=== PATIENT | male | born 1965 | race Hispanic/Latino ===

== ENCOUNTER 2017-12-30 11:50 | Inpatient (IN) | payer SELFPAY ==
[2017-12-30] MEDS ORDERED: MORPHINE 4 MG/ML SYR ONE ×2 (14:27→16:26)
[2017-12-30] MEDS ORDERED: ONDANSETRON 4 MG/2 ML VIAL ONE ×2 (14:27→16:26)
[2017-12-30 14:31] LABS: Urine Blood NEGATIVE (NEG); Urine Glucose 2+ (NEG); Urine Protein 3+ (NEG); Urine Specific Gravity >1.030 (1.005-1.030)
[2017-12-30 14:33] LABS: Absolute Lymphocytes (CBC) 0.8 K/uL (0.7-4.9); Absolute Neutrophil 17.9 K/uL (1.8-8.0); Basophils % 0.1 % (0-1.3); Hematocrit 40.3 % (39.6-49.0); Lymphocytes % 3.8 % (15.3-44.8); MCH 30.3 pg (27.0-35.0); MCV 89.4 fL (80-100); MPV 8.8 fL (7.6-11.3); Monocytes % 5.1 % (3.3-12.3); RBC Red Blood Cell Count 4.51 M/uL (4.33-5.43)
[2017-12-30 15:03] LABS: Potassium 3.8 mEq/L (3.6-5.0)
[2017-12-30 15:09] LABS: Albumin 4.6 g/dL (3.2-5.5); Bilirubin Direct 0.2 mg/dL (0-0.2); Bilirubin Total 1.4 mg/dL (0.3-1.2); Protein, Total 8.6 g/dL (6.0-8.3)
[2017-12-30] MEDS ORDERED: PIPER/TAZO/NS 3.375gm 3.375 GM/100 ML BAG ONE (15:21)
[2017-12-30] MEDS ORDERED: FENTANYL CITR 100 MCG/2 ML ONE ×2 (16:50→17:28)
--- NOTE | 2017-12-30 17:00 | RAD REPORT ---
EXAM DESCRIPTION: CTAbdomen Pelvis W Contrast - 12/30/2017 4:42 pm CLINICAL HISTORY: Abdominal pain. COMPARISON: None. TECHNIQUE: Biphasic CT imaging of the abdomen and pelvis was performed with 100 ml non-ionic IV cont rast. All CT scans are performed using dose optimization technique as appropriate and may include automated exposure control or mA/KV adjustment according to patient size. FINDINGS: The lung bases are clear. The liver, spleen, pancreas, adrenal glands and left kidney are within normal limits. Several mildly complicated right renal cystic lesion noted, in the superior pole measuring 3.4 cm, in the inferior p ole measuring 13 mm. The appearance of these cystic lesions warrants followup surveillance imaging. No bowel obstruction, free air, free fluid or abscess. The appendix is significantly dilated measuri ng up to 22 mm with fluid and air present. Small extraluminal air bubbles are present along the infer ior aspect of the appendix. Moderate periappendiceal fat stranding is seen. Findings are most compati ble with perforated appendicitis. Small fat containing umbilical hernia. No evidence of significant l ymphadenopathy. No suspicious bony findings. IMPRESSION: Acute perforated appendicitis suspected. Complex cystic lesions involving the right kidney as detailed. Recommend followup CT or MR imaging of the kidneys with contrast in 6 months.
[2017-12-30] MEDS ORDERED: NA CHLORIDE 0.9% 1,000 ML ONE (17:01)
--- NOTE | 2017-12-30 17:09 | EDPHYS ---
Physician Documentation [facility] Name: Luis Alfredo Fairbanks Age: 52 yrs Sex: Male : 1965 Arrival Date: 12/30/2017 Time: 11:53 Bed 23 Private MD: Aliya Arteaga H ED Physician Lance Arguelles HPI: 12/30 15:20 This 52 yrs old Male presents to ER via Ambulatory with complaints of jr8 Abdominal Pain. 15:20 The patient presents with abdominal pain right lower quadrant. Onset: The jr8 symptoms/episode began/occurred acutely, today. The symptoms do not radiate. Associated signs and symptoms: Pertinent positives: nausea and vomiting. The symptoms are described as sharp. Modifying factors: The symptoms are alleviated by nothing, the symptoms are aggravated by movement. Severity of pain: At its worst the pain was moderate in the emergency department the pain is unchanged. The patient has not experienced similar symptoms in the past. The patient has not recently seen a physician. Historical: - Allergies: 12:01 No Known Allergies; aj - Home Meds: 12:01 None [Active]; aj - PMHx: 12:01 None; aj - PSHx: 12:01 None; aj - Immunization history:: Adult Immunizations up to date. - Social history:: Smoking status: Patient/guardian denies using tobacco. - Ebola Screening: : No symptoms or risks identified at this time. ROS: 15:20 ENT: Negative for injury, pain, and discharge, Neck: Negative for injury, pain, and jr8 swelling, Cardiovascular: Negative for chest pain, palpitations, and edema, Respiratory: Negative for shortness of breath, cough, wheezing, and pleuritic chest pain, Back: Negative for injury and pain, MS/Extremity: Negative for injury and deformity, Skin: Negative for injury, rash, and discoloration, Neuro: Negative for headache, weakness, numbness, tingling, and seizure. 15:20 Abdomen/GI: Positive for abdominal pain, nausea and vomiting, Negative for diarrhea, constipation, abdominal cramps, abdominal distension, anorexia, dysphagia, hematemesis, black/tarry stool, rectal pain, rectal bleeding, bowel incontinence, flatulence. Exam: 15:20 Eyes: Pupils equal round and reactive to light, extra-ocular motions intact. Lids and jr8 lashes normal. Conjunctiva and sclera are non-icteric and not injected. Cornea within normal limits. Periorbital areas with no swelling, redness, or edema. ENT: Nares patent. No nasal discharge, no septal abnormalities noted. Tympanic membranes are normal and external auditory canals are clear. Oropharynx with no redness, swelling, or masses, exudates, or evidence of obstruction, uvula midline. Mucous membranes moist. Neck: Trachea midline, no thyromegaly or masses palpated, and no cervical lymphadenopathy. Supple, full range of motion without nuchal rigidity, or vertebral point tenderness. No Meningismus. Cardiovascular: Regular rate and rhythm with a normal S1 and S2. No gallops, murmurs, or rubs. Normal PMI, no JVD. No pulse deficits. Respiratory: Lungs have equal breath sounds bilaterally, clear to auscultation and percussion. No rales, rhonchi or wheezes noted. No increased work of breathing, no retractions or nasal flaring. Back: No spinal tenderness. No costovertebral tenderness. Full range of motion. Skin: Warm, dry with normal turgor. Normal color with no rashes, no lesions, and no evidence of cellulitis. MS/ Extremity: Pulses equal, no cyanosis. Neurovascular intact. Full, normal range of motion. Neuro: Awake and alert, GCS 15, oriented to person, place, time, and situation. Cranial nerves II-XII grossly intact. Motor strength 5/5 in all extremities. Sensory grossly intact. Cerebellar exam normal. Normal gait. 15:20 Abdomen/GI: Inspection: abdomen appears normal, Bowel sounds: active, all quadrants, Palpation: soft, in all quadrants, moderate abdominal tenderness, in the right lower quadrant, mass, is not appreciated, rebound tenderness, is appreciated in the right lower quadrant, voluntary guarding, is elicited in the right lower quadrant, involuntary guarding, is not appreciated, no appreciated organomegaly, Indicators: McBurney's point is tender, Farrar's sign is negative, Rovsing's sign is negative, Obturator sign is negative, Psoas sign is negative, Liver: no appreciated palpable abnormalities, tenderness, is not appreciated. Vital Signs: 12:01 BP 157 / 129; Pulse 74; Resp 20; Temp 98.8; Pulse Ox 99% on R/A; Weight 81.65 kg; aj Height 5 ft. 6 in. (167.64 cm); 14:00 BP 144 / 79; Pulse 64; Resp 18 S; Pulse Ox 100% on R/A; aa5 15:05 BP 147 / 85; Pulse 58; Resp 18; Pulse Ox 100% on R/A; tl3 17:05 BP 128 / 83; Pulse 80; Resp 20; Pulse Ox 94% on R/A; Pain 6/10; mb3 17:30 BP 135 / 80; Pulse 80; Resp 20; Pulse Ox 99% on R/A; mh5 12:01 Body Mass Index 29.05 (81.65 kg, 167.64 cm) aj MDM: 13:40 Patient medically screened. [facility] 16:58 Data reviewed: vital signs, nurses notes, lab test result(s), EKG, radiologic studies, 8 CT scan, and as a result, I will admit patient. Data interpreted: Pulse oximetry: on room air is 100 %. Interpretation: normal. Counseling: I had a detailed discussion with the patient and/or guardian regarding: the historical points, exam findings, and any diagnostic results supporting the discharge/admit diagnosis, lab results, radiology results, the need for further work-up and treatment in the hospital. ED course: Spoke with Dr. Talamantes. Perforated appendicitis noted on CT. 16:58 ED course: Paged Dr. Marcos 16:57. Awaiting call back . 8 17:03 ED course: Dr. Marcos called back and will see patient immediately in PACU for surgery. [facility] OR team and laborer [employer] house notified . 12/30 13:40 Order name: Basic Metabolic Panel; Complete Time: 15:59 8 12/30 13:40 Order name: CBC with Diff 12/30 13:40 Order name: Creatinine for Radiology; Complete Time: 15:10 [facility] 12/30 13:40 Order name: Hepatic Function; Complete Time: 15:59 8 12/30 13:40 Order name: Lipase; Complete Time: 15:59 [facility] 12/30 14:28 Order name: Urine Dipstick--Ancillary (enter results); Complete Time: 14:36 bd 12/30 14:24 Order name: CT Abd/Pelvis - W/Contrast; Complete Time: 17:03 [facility] 12/30 13:40 Order name: IV Saline Lock; Complete Time: 14:06 8 12/30 13:40 Order name: Labs collected and sent; Complete Time: 14:06 8 12/30 13:40 Order name: Urine Dipstick-Ancillary (obtain specimen); Complete Time: 14:32 Administered Medications: 14:35 Drug: Zofran 4 mg Route: IVP; Infused Over: 3 mins; Site: right antecubital; tl3 15:06 Follow up: Response: No adverse reaction tl3 14:36 Drug: morphine 4 mg Route: IVP; Infused Over: 3 mins; Site: right antecubital; tl3 15:07 Follow up: Response: Pain is decreased tl3 15:30 Drug: Zosyn 3.375 grams Route: IVPB; Infused Over: 60 mins; Site: right antecubital; mb3 18:02 Follow up: Response: No adverse reaction; IV Status: Completed infusion; IV Intake: mb3 100ml 16:25 Drug: morphine 4 mg Route: IVP; Site: left antecubital; mb3 18:03 Follow up: Response: No adverse reaction mb3 16:25 Drug: Zofran 4 mg Route: IVP; Site: left antecubital; mb3 18:04 Follow up: Response: No adverse reaction mb3 16:57 Drug: fentaNYL (PF) 75 mcg Route: IVP; Site: left forearm; mb3 18:03 Follow up: Response: No adverse reaction mb3 17:03 Drug: NS 0.9% 1000 ml Route: IV; Rate: 1000 ml; Site: left antecubital; mb3 18:03 Follow up: Response: No adverse reaction; IV Status: Completed infusion; IV Intake: mb3 1000ml Point of Care Testing: Blood Glucose: 14:30 Blood Glucose: 135 mg/dL; mh5 Ranges: Critical Glucose Levels:Adult <50 mg/dl or >400 mg/dl <40 mg/dl or >180 mg/dl Disposition: 19:19 Co-signature as Attending Physician, Lance Arguelles MD I agree with the assessment and kdr plan of care. Disposition: 12/30/17 17:09 Hospitalization ordered by Gaston Marcos for Inpatient Admission. Preliminary diagnosis is Acute appendicitis with localized peritonitis. - Bed requested for Telemetry/MedSurg (observation). - Status is Inpatient Admission. mb3 - Condition is Fair. - Problem is new. - Symptoms are unchanged. UTI on Admission? No Signatures: Dispatcher [employer] EDMS Sonia Aragon Amanda, RN RN Lance Mendoza MD MD [facility] Maggy Genao RN RN aa5 George Don, PA PA jr8 Rohini Green RN RN tl3 Dennis Cunningham RN RN mb3 Corrections: (The following items were deleted from the chart) 17:50 17:09 Hospitalization Ordered by Gaston Marcos MD for Inpatient Admission. Preliminary bd diagnosis is Acute appendicitis with localized peritonitis. Bed requested for Operating Room. Status is Inpatient Admission. Condition is Fair. Problem is new. Symptoms are unchanged. UTI on Admission? No. jr8 18:05 17:50 12/30/2017 17:09 Hospitalization Ordered by Gaston Marcos MD for Inpatient mb3 Admission. Preliminary diagnosis is Acute appendicitis with localized peritonitis. Bed requested for Telemetry/MedSurg (observation). Status is Inpatient Admission. Condition is Fair. Problem is new. Symptoms are unchanged. UTI on Admission? No. bd
--- NOTE | 2017-12-30 17:09 | ER ---
Nurse's Notes [facility] Name: Luis Alfredo Fairbanks Age: 52 yrs Sex: Male : 1965 Arrival Date: 12/30/2017 Time: 11:53 Bed 23 Private MD: Aliya Arteaga H Diagnosis: Acute appendicitis with localized peritonitis Presentation: 12/30 12:00 Presenting complaint: Patient states: RLQ pain with N/V since last night. Reports aj severe pain. Transition of care: patient was not received from another setting of care. Onset of symptoms was December 29, 2017. Care prior to arrival: None. 12:00 Method Of Arrival: Ambulatory aj 12:00 Acuity: ANGEL 3 aj 13:55 Risk Assessment: Do you want to hurt yourself or someone else? Patient reports no aa5 desire to harm self or others. Initial Sepsis Screen: Does the patient meet any 2 criteria? No. Patient's initial sepsis screen is negative. Does the patient have a suspected source of infection? No. Patient's initial sepsis screen is negative. Triage Assessment: 12:01 General: Appears in no apparent distress. uncomfortable, Behavior is calm, cooperative, aj appropriate for age. Pain: Complains of pain in right lower quadrant. Neuro: Level of Consciousness is awake, alert, obeys commands, Oriented to person, place, time, situation, Appropriate for age. Respiratory: Airway is patent Respiratory effort is even, unlabored, Respiratory pattern is regular, symmetrical. GI: Reports lower abdominal pain, nausea, vomiting. Derm: Skin is intact, is healthy with good turgor, Skin is pink, warm \T\ dry. normal. Historical: - Allergies: 12:01 No Known Allergies; aj - Home Meds: 12:01 None [Active]; aj - PMHx: 12:01 None; aj - PSHx: 12:01 None; aj - Immunization history:: Adult Immunizations up to date. - Social history:: Smoking status: Patient/guardian denies using tobacco. - Ebola Screening: : No symptoms or risks identified at this time. Screenin:55 Abuse screen: Denies threats or abuse. Nutritional screening: No deficits noted. aa5 Tuberculosis screening: No symptoms or risk factors identified. Fall Risk None identified. Assessment: 13:55 General: Appears uncomfortable, Behavior is calm, cooperative. Pain: Complains of pain aa5 in right lower quadrant and left lower quadrant Pain does not radiate. Pain currently is 10 out of 10 on a pain scale. Quality of pain is described as sharp, Pain began 2-3 days ago. Is continuous. Neuro: Level of Consciousness is awake, alert, obeys commands, Oriented to person, place, time, situation. Cardiovascular: Heart tones S1 S2 present Rhythm is regular. Respiratory: Airway is patent Respiratory effort is even, unlabored, Respiratory pattern is regular, symmetrical, Breath sounds are clear bilaterally. Denies shortness of breath. GI: Abdomen is round non-distended, Bowel sounds present X 4 quads. Abd is soft X 4 quads Abdomen is tender to palpation in right lower quadrant Reports nausea, vomiting, Patient currently denies bloody stool, diarrhea. : No signs and/or symptoms were reported regarding the genitourinary system. EENT: No signs and/or symptoms were reported regarding the EENT system. Derm: Skin is pink, warm \T\ dry. Musculoskeletal: Range of motion: intact in all extremities. 14:07 Reassessment: Report given to LOVE Nova. aa5 15:05 General: Appears uncomfortable, well groomed, well developed, well nourished, Behavior tl3 is calm, cooperative, appropriate for age. Pain: Complains of pain in left lower quadrant and abdomen and right lower quadrant. Neuro: Level of Consciousness is awake, alert, obeys commands, Oriented to person, place, time, situation. Cardiovascular: Heart tones S1 S2 present. Respiratory: Airway is patent Respiratory effort is even, unlabored, Respiratory pattern is regular, symmetrical, Breath sounds are clear bilaterally. 15:17 Reassessment: Finished PO contrast. Reassessment: Patient appears in no apparent mb3 distress at this time. Patient and/or family updated on plan of care and expected duration. Pain level reassessed. Patient is alert, oriented x 3, equal unlabored respirations, skin warm/dry/pink. agree with above assessment Patient states feeling better. 17:06 Reassessment: Patient and/or family updated on plan of care and expected duration. Pain mb3 level reassessed. Patient is alert, oriented x 3, equal unlabored respirations, skin warm/dry/pink. 17:13 Reassessment: Patient and/or family updated on plan of care and expected duration. Pain mb3 level reassessed. Patient is alert, oriented x 3, equal unlabored respirations, skin warm/dry/pink. Removed all clothing in preparation of surgery, pt placed glasses inside his shoes with socks. Cloths are in two bags, shoes, socks, and glasses in one, cloths, hat, sunglasses and phone in the other. Patient states symptoms have not improved. Vital Signs: 12:01 BP 157 / 129; Pulse 74; Resp 20; Temp 98.8; Pulse Ox 99% on R/A; Weight 81.65 kg; aj Height 5 ft. 6 in. (167.64 cm); 14:00 BP 144 / 79; Pulse 64; Resp 18 S; Pulse Ox 100% on R/A; aa5 15:05 BP 147 / 85; Pulse 58; Resp 18; Pulse Ox 100% on R/A; tl3 17:05 BP 128 / 83; Pulse 80; Resp 20; Pulse Ox 94% on R/A; Pain 6/10; mb3 17:30 BP 135 / 80; Pulse 80; Resp 20; Pulse Ox 99% on R/A; mh5 12:01 Body Mass Index 29.05 (81.65 kg, 167.64 cm) ED Course: 11:53 Patient arrived in ED. mr 11:53 Aliya Arteaga DO is Private Physician. mr 12:01 Triage completed. aj 12:01 Arm band placed on right wrist. Patient placed in waiting room, Patient notified of wait time. 12:07 Notified Charge Nurse of Need for bed. aj 13:40 George Don PA is PHCP. jr8 13:40 Lance Arguelles MD is Attending Physician. jr8 13:48 Maggy Genao, LOVE is Primary Nurse. aa5 14:05 Patient has correct armband on for positive identification. Placed in gown. Bed in low mh5 position. Call light in reach. Side rails up X 1. Pillow given. Pulse ox on. NIBP on. 14:05 Initial lab(s) drawn, by in, sent to lab. Inserted saline lock: 20 gauge in right mh5 antecubital area, using aseptic technique. Blood collected. 14:06 Basic Metabolic Panel Sent. mh5 14:06 CBC with Diff Sent. 5 14:06 Creatinine for Radiology Sent. 5 14:06 Hepatic Function Sent. 5 14:06 Lipase Sent. [facility] 14:31 Urine Dipstick--Ancillary (enter results) Sent. 5 14:31 Basic Metabolic Panel Sent. 5 14:31 CBC with Diff Sent. 5 14:31 Creatinine for Radiology Sent. 5 14:31 Hepatic Function Sent. [facility] 14:32 Lipase Sent. 5 15:05 No provider procedures requiring assistance completed. tl3 15:15 Report given to LOVE Collins. tl3 15:49 IV discontinued, intact, bleeding controlled, Pressure dressing applied, warm cloth mb3 applied to infitration site. 15:50 Inserted saline lock: 20 gauge in left antecubital area, using aseptic technique. mb3 15:50 Missed attempt(s): 20 gauge Bleeding controlled, band aid applied, catheter tip intact. mb3 16:37 Patient moved to [place] via wheelchair. nj 16:42 CT completed. Patient tolerated procedure well. Patient moved back from MN. nj 16:42 CT Abd/Pelvis - W/Contrast In Process Unspecified. EDMS 16:58 EKG done, by solid waste landfill technician. reviewed by George BLANKENSHIP. 3 17:08 Gaston Marcos MD is Hospitalizing Provider. jr8 Administered Medications: 14:35 Drug: Zofran 4 mg Route: IVP; Infused Over: 3 mins; Site: right antecubital; tl3 15:06 Follow up: Response: No adverse reaction tl3 14:36 Drug: morphine 4 mg Route: IVP; Infused Over: 3 mins; Site: right antecubital; tl3 15:07 Follow up: Response: Pain is decreased tl3 15:30 Drug: Zosyn 3.375 grams Route: IVPB; Infused Over: 60 mins; Site: right antecubital; mb3 18:02 Follow up: Response: No adverse reaction; IV Status: Completed infusion; IV Intake: mb3 100ml 16:25 Drug: morphine 4 mg Route: IVP; Site: left antecubital; mb3 18:03 Follow up: Response: No adverse reaction mb3 16:25 Drug: Zofran 4 mg Route: IVP; Site: left antecubital; mb3 18:04 Follow up: Response: No adverse reaction mb3 16:57 Drug: fentaNYL (PF) 75 mcg Route: IVP; Site: left forearm; mb3 18:03 Follow up: Response: No adverse reaction mb3 17:03 Drug: NS 0.9% 1000 ml Route: IV; Rate: 1000 ml; Site: left antecubital; mb3 18:03 Follow up: Response: No adverse reaction; IV Status: Completed infusion; IV Intake: mb3 1000ml Point of Care Testing: Blood Glucose: 14:30 Blood Glucose: 135 mg/dL; 5 Ranges: Intake: 18:02 IV: 100ml; Total: 100ml. mb3 18:03 IV: 1000ml; Total: 1100ml. 3 Outcome: 17:09 Decision to Hospitalize by Provider. [facility] 18:04 Admitted to OR accompanied by nurse, family with patient, via stretcher, room 205 after mb3 surgery, with chart. 18:04 Condition: stable 18:04 Instructed on the need for admit. 18:05 Patient left the ED. 3 Signatures: Dispatcher [employer] Ear Fermin, RN Katty Lang Audri, RN RN aa5 George Don PA PA [facility] Zackery Mendoza Maria 5 Rohini Green RN RN tl3 Dennis Cunningham RN RN mb3 Maria Elena Hartman 3
[2017-12-30] MEDS ORDERED: PROPOFOL 200 MG/20 ML VIAL IV ONE (17:27)
[2017-12-30] MEDS ORDERED: MIDAZOLAM HCL 2 MG/2 ML INJ ONE (17:28)
[2017-12-30] MEDS ORDERED: GLYCOPYRROLATE 0.2 MG/ML SYR ONE ×2 (17:28)
[2017-12-30] MEDS ORDERED: ROCURONIUM 50 MG/5 ML VIAL IV ONE ×2 (17:29→18:41)
[2017-12-30] MEDS ORDERED: MORPHINE 10 MG/ML VIAL ONE (17:29)
[2017-12-30] MEDS ORDERED: NEOSTIGMINE 1 MG/ML -5 ML SYRINGE ONE (17:29)
[2017-12-30] MEDS ORDERED: KETOROLAC 30 MG/ML INJ ONE (17:29)
[2017-12-30] MEDS ORDERED: ONDANSETRON HCL 40 MG/20 ML VIAL ONE (17:34)
[2017-12-30] MEDS ORDERED: METOCLOPRAMIDE 10 MG/2mL INJ ONE (17:34)
[2017-12-30] MEDS ORDERED: BUPIVACAINE 0.5% Inj,MDV 50 mL VIAL ONE (17:35)
[2017-12-30] MEDS ORDERED: Ringers Lactate 1,000 ML IV ONE ×2 (17:45→19:27)
--- NOTE | 2017-12-30 18:22 | PREOPHP ---
Date of Admission: 12/30/2017 Chief Complaint: Abdominal pain. History Of Present Illness: The patient is a 52-year-old gentleman, comes in with approximately 5-da y history of periumbilical pain, progressively getting worse and localizing to the right lower quadra nt, associated with nausea and vomiting, anorexia. No diarrhea or constipation. No blood in his sto ol. No dysuria or hematuria. No sore throat, runny nose, cough, headaches, or dizziness. No chest pain. Review of Systems: Otherwise unremarkable. No fever or chills. Past Medical History: Negative. Past Surgical History: Left index finger surgery. Allergies: NO ALLERGIES. Social History: He does not smoke. Drinks occasionally. Family History: Significant for abdominal cancer in the sister. Physical Examination: Vital Signs: Stable. He is afebrile. General: He is awake, alert, and oriented x3. Head and Neck: Cranial nerves 2 through 12 are grossly within normal limits. No neck masses. No JV D. Throat clear. Neck is supple. Chest: Clear. Heart: S1, S2. Abdomen: Soft, nondistended. Positive bowel sounds. Positive right lower quadrant tenderness with rebound, rigidity, and guarding. There is a little bit of tenderness on the left side and suprapubic region, but no peritonitis on that side. Extremities: Adequately perfused. Nontender. Neuro: Nonfocal. Laboratory Data: White count is 19.6 with a left shift. Chemistry is significant for glucose of 152 , lipase of 18. CT of the abdomen and pelvis reviewed with the radiologist is consistent with acute perforated appendicitis and also the patient has complex cystic lesions in the right kidney, 1 on the superior pole and inferior pole, somewhat complex in nature, and needs to be followed with a repeat CT or MRI in 6 months. Assessment: A 52-year-old gentleman with acute perforated appendicitis and right kidney mass. Recommendations: We will advise the patient to go see a urologist as an outpatient for further mary p of the cystic mass in the kidney. As far as the acute appendicitis is concerned, the patient needs to go to the operating room for laparoscopic appendectomy, possible open. The patient understands t he risks, benefits, and alternatives and agrees to procedure. ALEJO/MONICA Voice ID: [id number]
[2017-12-30] MEDS ORDERED: LIDOCAINE 2% MPF 2 ML VIAL IV ONE (19:00)
--- NOTE | 2017-12-30 19:16 | P.OP ---
Assistant Manager Of Operations: Manisha JUNG Preoperative diagnosis: Acute Perforated Appendicitis Postoperative diagnosis: Same, Acute Gangrenous Perforated Appendicitis Primary procedure: Diag Lap, Exp Lap , Appendectomy, Repair Umbilical Hernia Anesthesia: General Estimated blood loss: Minimal Specimen: Appy, Hernia Sac Findings: as above Complications: None Drain(s): Urinary catheter, DELILAH drain Transferred to: Recovery Room Condition: Good
[2017-12-30] MEDS ORDERED: MEPERIDINE HCL 50 MG/ML AMP IV PRN (19:20)
[2017-12-30] MEDS: MEPERIDINE HCL 50 MG/ML AMP ONE ×2 (19:31→19:38)
[2017-12-30] MEDS ORDERED: MEPERIDINE HCL 25 MG/0.5 ML ONE (19:53)
[2017-12-30] MEDS: MEPERIDINE HCL 25 MG/0.5 ML IV PRN (21:03)
[2017-12-30] MEDS: NA CHLORIDE 0.9% 1,000 ML IV SCH (21:05)
[2017-12-30 22:00] LABS: Blood Morphology Comment NOT SEEN (NOT SEEN); Platelet Estimate ADEQ; Urine White Blood Cell Casts OK
[2017-12-30] MEDS ORDERED: CEFOXITIN/SWI 1gm 2 GM/20 ML SYR ONE (23:43)
[2017-12-31] MEDS ORDERED: CEFOXITIN SODIUM 1 GM/VIAL IV SCH
[2017-12-31] MEDS ORDERED: CEFOXITIN 1 GM in NA CHLORIDE 0.9% 100 ML IVPB SCH ×2
[2017-12-31] MEDS: METRONIDAZOLE 500mg IVPB 500 MG/100 ML BAG IV SCH ×4 (00:02→18:13)
[2017-12-31] MEDS: MEPERIDINE HCL 25 MG/0.5 ML IV PRN ×8 (00:03→21:13)
[2017-12-31] MEDS: CEFOXITIN 1 GM/10 ML SYR IV SCH ×2 (00:07→05:31)
--- NOTE | 2017-12-31 03:50 | OP ---
Date of Procedure: 12/30/2017 Surgeon: Gaston Marcos MD Supervisor Filling And Packing: FABIANA Cornejo. Preoperative Diagnosis: Acute perforated appendicitis. Postoperative Diagnosis: Acute perforated gangrenous appendicitis with a small umbilical hernia. Procedures Performed: Diagnostic laparoscopy, exploratory laparotomy, appendectomy, and repair of um bilical hernia. Estimated Blood Loss: 50 cc. Specimens: Appendix and hernia sac. Findings: As above. Anesthesia: General. Complications: None. Disposition: The patient tolerated the procedure in stable condition and was taken to the Recovery i n good general condition. Procedure In Detail: The patient was brought to the OR and placed in supine position. General anest hesia was begun. The patient was prepped and draped in usual sterile fashion. A #15 blade was used to make a 2-cm transverse incision of the umbilical hernia that was present. I did make it transvers e to be able to easily repair the hernia defect. Subcutaneous tissue was divided and deepened throug h that hernia sac contents which were preperitoneal fat identified, excised, and sent to Pathology as specimen; and a 1-cm periumbilical hernia defect slightly extended and then 12-mm trocar was placed into the peritoneal cavity under direct vision and then pneumoperitoneum established and two 5-mm tro cars placed under direct vision; one in the suprapubic region and one in the left lower quadrant. La paroscopy revealed an acutely inflamed appendix with gangrenous changes with pus in the right lower q uadrant and pelvis as well as some appendicolith present. I could not clearly identify the base of t he appendix on the cecum as it was retrocecal and medial. This required complete mobilization of the ileocecal region. So, subsequently, we decided to convert this to an open procedure by making a mid line incision just over the umbilicus to the pubis. Subcutaneous tissue was divided. The fascia was identified and divided, and then exploratory laparotomy confirmed the aforementioned findings. With proper mobilization of the cecum, the base of the appendix on the cecum was identified as well as th e mesoappendix, and this was divided with the Endo-VAUGHN stapling device. Appendix was removed and sen t to Pathology as specimen. Right lower quadrant and pelvis were thoroughly irrigated. The effluent was clear. There was no evidence of bowel injury or bleeding noted. Salvador-Archer drain #10 flat, placed through 3-0 nylon, and then midline fascia closed as well as the repair of the hernia with #2 nylon running suture. Then, wounds were irrigated, bleeding controlled with cautery, and then all wo unds were closed with pat. Sterile dressing was applied. The patient was awakened and taken to Recovery in good general condition. ALEJO/MONICA Voice ID: [id number] Report ID: [id number]
[2017-12-31] MEDS: NA CHLORIDE 0.9% 1,000 ML IV SCH ×4 (04:38→20:08)
[2017-12-31 05:19] LABS: Absolute Lymphocytes (CBC) 0.7 K/uL (0.7-4.9); Absolute Monocytes 0.5 K/uL (0.1-1.3); Absolute Neutrophil 7.4 K/uL (1.8-8.0); Basophils % 0.3 % (0-1.3); Hematocrit 36.9 % (39.6-49.0); Lymphocytes % 8.3 % (15.3-44.8); MCH 30.8 pg (27.0-35.0); MPV 8.4 fL (7.6-11.3); Monocytes % 5.8 % (3.3-12.3)
[2017-12-31 05:37] LABS: Phosphorus 3.4 mg/dL (2.5-4.3); Potassium 3.9 mEq/L (3.6-5.0)
[2017-12-31 05:40] LABS: Magnesium 1.4 mg/dL (1.8-2.5)
[2017-12-31] MEDS ORDERED: Magnesium Sulfate 2gm IVPB 2 G/50 ML BAG IV ONE (06:09)
[2017-12-31] MEDS: PANTOPRAZOLE 40 MG INJ IVP SCH (08:47)
[2017-12-31] MEDS: ENOXAPARIN 40 MG/0.4 ML SQ SCH (08:47)
[2017-12-31] MEDS: SODIUM CHLORIDE 0.9% 10ML INJ IV PRN (08:47)
[2017-12-31] MEDS: ONDANSETRON 4 MG/2 ML VIAL IV PRN (12:32)
[2017-12-31] MEDS: CEFOXITIN/SWI 1gm 1 GM/10 ML SYR IV SCH ×2 (13:13→18:13)
--- NOTE | 2017-12-31 14:46 | PN ---
Date of Progress Note: 12/31/2017 Subjective: The patient is awake, alert. Complaining of incisional pain. Objective: Vital Signs: Stable, afebrile. Abdomen: A little distended. Hypoactive bowel sounds. No peritonitis. Laboratory Data: Reviewed. Mag level being replaced. White count is normal. Assessment: Status post appendectomy for perforation, gangrene. Recommendation: Continue ICU monitoring another day. Control pain management as well as getting phy sical therapy. Get him out of bed. Continue IV antibiotics. Encourage incentive spirometry. Seque ntial compression device and hopefully tomorrow, we can transfer him to regular room. Clinically, he is stable. /MODL Voice ID: [id number] Report ID: [id number]
--- NOTE | 2017-12-31 17:40 | EKG ---
Test Date: 2017-12-30 Test Time: 16:51:47 Director Of Engineering: DANIEL MEASUREMENT RESULTS: Intervals: Rate: 75 OH: 148 QRSD: 80 QT: 386 QTc: 431 [place]: P: 31 OH: 148 QRS: 46 T: 11 INTERPRETIVE STATEMENTS: Normal sinus rhythm Normal ECG No previous ECG available for comparison Electronically Signed On 12-31-17 17:37:15 CDT by John Kyle
[2018-01-01] MEDS: MEPERIDINE HCL 25 MG/0.5 ML IV PRN ×9 (00:03→22:27)
[2018-01-01] MEDS: METRONIDAZOLE 500mg IVPB 500 MG/100 ML BAG IV SCH ×4 (00:04→17:27)
[2018-01-01] MEDS: CEFOXITIN/SWI 1gm 1 GM/10 ML SYR IV SCH ×4 (00:04→17:27)
[2018-01-01] MEDS: NA CHLORIDE 0.9% 1,000 ML IV SCH ×3 (03:06→20:18)
[2018-01-01] MEDS: ONDANSETRON 4 MG/2 ML VIAL IV PRN (03:12)
[2018-01-01 04:20] VITALS: BMI 29.7
[2018-01-01 05:21] LABS: Absolute Lymphocytes (CBC) 0.5 K/uL (0.7-4.9); Absolute Monocytes 0.5 K/uL (0.1-1.3); Absolute Neutrophil 7.7 K/uL (1.8-8.0); Basophils % 0.2 % (0-1.3); Eosinophils % 0.1 % (0-4.4); Hematocrit 33.3 % (39.6-49.0); Lymphocytes % 5.3 % (15.3-44.8); MCH 31.6 pg (27.0-35.0); MCV 90.9 fL (80-100); MPV 8.4 fL (7.6-11.3); Monocytes % 5.7 % (3.3-12.3); RBC Red Blood Cell Count 3.67 M/uL (4.33-5.43)
[2018-01-01 05:46] LABS: Magnesium 2.3 mg/dL (1.8-2.5); Potassium 4.6 mEq/L (3.6-5.0)
[2018-01-01] MEDS: PANTOPRAZOLE 40 MG INJ IVP SCH (07:02)
[2018-01-01] MEDS: SODIUM CHLORIDE 0.9% 10ML INJ IV PRN (07:02)
[2018-01-01] MEDS: ENOXAPARIN 40 MG/0.4 ML SQ SCH (09:05)
--- NOTE | 2018-01-01 11:57 | PN ---
Date of Progress Note: 01/01/2018 Subjective: The patient is awake, alert. Complaining of incisional pain. No flatus or bowel moveme nts. Objective: Vital Signs: Stable. Afebrile. Abdomen: Soft, slightly distended. Hypoactive bowel sounds. Laboratory Data: Reviewed. Assessment: Status post exploratory laparotomy and appendectomy for perforated gangrenous appendix. Recommendations: Discontinue Hunter, transfer to floor, encourage ambulation, continue NG tube, encou rage incentive spirometry, and continue antibiotics. /MODL Voice ID: [id number] Report ID: [id number]
[2018-01-02] MEDS: NA CHLORIDE 0.9% 1,000 ML IV SCH ×4 (00:34→20:18)
[2018-01-02] MEDS: CEFOXITIN/SWI 1gm 1 GM/10 ML SYR IV SCH ×5 (00:34→23:46)
[2018-01-02] MEDS: METRONIDAZOLE 500mg IVPB 500 MG/100 ML BAG IV SCH ×5 (00:34→23:46)
[2018-01-02] MEDS: MEPERIDINE HCL 25 MG/0.5 ML IV PRN ×10 (00:35→23:46)
[2018-01-02 05:52] LABS: Absolute Lymphocytes (CBC) 0.6 K/uL (0.7-4.9); Absolute Monocytes 0.6 K/uL (0.1-1.3); Absolute Neutrophil 8.5 K/uL (1.8-8.0); Basophils % 0.2 % (0-1.3); Eosinophils % 0.3 % (0-4.4); Lymphocytes % 5.9 % (15.3-44.8); MCH 31.3 pg (27.0-35.0); MCV 91.4 fL (80-100); MPV 8.3 fL (7.6-11.3)
[2018-01-02 06:03] LABS: Magnesium 2.1 mg/dL (1.8-2.5); Phosphorus 1.6 mg/dL (2.5-4.3)
[2018-01-02 06:43] LABS: Platelet Estimate ADEQ; Urine White Blood Cell Casts OK
[2018-01-02 06:44] LABS: Blood Morphology Comment NOT SEEN (NOT SEEN)
[2018-01-02] MEDS ORDERED: SODIUM PHOSPHATE 15 MM in NA CHLORIDE 0.9% 250 ML IV SCH (08:00)
[2018-01-02] MEDS ORDERED: POTASSIUM PHOS IN 0.9 % NACL 15 MMOL/250 ML BAG IV ONE (08:00)
[2018-01-02] MEDS: PANTOPRAZOLE 40 MG INJ IVP SCH (08:13)
[2018-01-02] MEDS: ENOXAPARIN 40 MG/0.4 ML SQ SCH (08:14)
--- NOTE | 2018-01-02 11:58 | PN ---
Date of Progress Note: 01/02/2018 Subjective: The patient is awake, alert. Pain is better. He had a bowel movement today. Objective: Vital Signs: Stable. Afebrile. Abdomen: Minimal tenderness on the right side, otherwise unremarkable. Laboratory Data: White count is normal. Electrolytes reviewed. Assessment: Status post exploratory laparotomy for perforated acute appendicitis. Recommendations: Continue antibiotics. We will clamp the NG tube, start him on sips of clear liquid s today, encourage ambulation and incentive spirometry. /MODL Voice ID: [id number] Report ID: [id number]
[2018-01-03] MEDS: MEPERIDINE HCL 25 MG/0.5 ML IV PRN ×5 (03:09→23:01)
[2018-01-03 05:15] LABS: Absolute Lymphocytes (CBC) 0.8 K/uL (0.7-4.9); Absolute Monocytes 0.7 K/uL (0.1-1.3); Absolute Neutrophil 6.5 K/uL (1.8-8.0); Basophils % 0.4 % (0-1.3); Eosinophils % 0.9 % (0-4.4); Hematocrit 32.6 % (39.6-49.0); Lymphocytes % 9.7 % (15.3-44.8); MCH 31.2 pg (27.0-35.0); MCV 90.5 fL (80-100); MPV 8.2 fL (7.6-11.3); Monocytes % 8.5 % (3.3-12.3)
[2018-01-03] MEDS: METRONIDAZOLE 500mg IVPB 500 MG/100 ML BAG IV SCH ×4 (05:24→23:07)
[2018-01-03] MEDS: CEFOXITIN/SWI 1gm 1 GM/10 ML SYR IV SCH ×4 (05:24→23:07)
[2018-01-03] MEDS: NA CHLORIDE 0.9% 1,000 ML IV SCH ×4 (05:25→23:07)
[2018-01-03 05:32] LABS: BUN Blood Urea Nitrogen 17 mg/dL (6-20); Bicarbonate 21 mEq/L (21-31); Glucose Level 108 mg/dL (65-120); Magnesium 2.1 mg/dL (1.8-2.5); Potassium 3.7 mEq/L (3.6-5.0); Sodium Level 134 mEq/L (135-145)
--- NOTE | 2018-01-03 06:49 | PN ---
Date of Progress Note: 01/03/2018 Subjective: The patient is awake, complaining of right-sided pain. No nausea or vomiting. Residual s have been minimal. Tolerating a little bit of the liquids. Objective: Vital signs: Stable. He is afebrile. Abdomen: Slightly distended with hypoactive bowel sounds. Little tender on the right side but no pe ritonitis. Laboratory Data: White count is normal. Electrolyte reviewed. Assessment: Status post exploratory laparotomy for perforated gangrenous, acute appendicitis. Recommendation: Continue IV antibiotics. We will discontinue the NG tube. Keep him on clear liquid s. Encourage ambulation. Parenteral management of pain. /MODL Voice ID: [id number] Report ID: [id number]
[2018-01-03] MEDS: HYDROCODONE/APAP 7.5/325 MG TAB PO PRN ×3 (09:26→21:42)
[2018-01-03] MEDS: ENOXAPARIN 40 MG/0.4 ML SQ SCH (09:27)
[2018-01-03] MEDS: PANTOPRAZOLE 40 MG INJ IVP SCH (09:27)
[2018-01-04] MEDS: HYDROCODONE/APAP 7.5/325 MG TAB PO PRN ×5 (01:47→21:41)
[2018-01-04] MEDS: MEPERIDINE HCL 25 MG/0.5 ML IV PRN ×9 (02:54→22:39)
[2018-01-04 04:48] LABS: Phosphorus 2.8 mg/dL (2.5-4.3); Potassium 3.5 mEq/L (3.6-5.0)
[2018-01-04] MEDS ORDERED: POTASSIUM CL SA 10 MEQ TAB PO ONE (05:30)
[2018-01-04] MEDS: METRONIDAZOLE 500mg IVPB 500 MG/100 ML BAG IV SCH ×3 (05:58→17:15)
[2018-01-04] MEDS: CEFOXITIN/SWI 1gm 1 GM/10 ML SYR IV SCH ×3 (05:59→17:14)
[2018-01-04] MEDS: ENOXAPARIN 40 MG/0.4 ML SQ SCH (09:15)
[2018-01-04] MEDS: PANTOPRAZOLE 40 MG INJ IVP SCH (09:16)
[2018-01-04] MEDS: NA CHLORIDE 0.9% 1,000 ML IV SCH ×2 (16:06→20:18)
--- NOTE | 2018-01-04 16:11 | PN ---
Date of Progress Note: 01/04/2018 Subjective: The patient is awake. His pain is somewhat better. He is tolerating clear liquids. No nausea or vomiting. Having bowel movements. DELILAH is putting out 90 cc per day, straw-colored fluid. No purulence or bowel contents. Objective: Abdomen is soft. Tenderness on the right side, but no peritonitis anymore. The wound is clean, dry, and intact. Assessment: Status post exploratory laparotomy, appendectomy for perforated gangrenous appendicitis. Recommendation: Continue IV antibiotics. We will advance his diet to full liquids. If tolerated we will go to regular diet and decrease his IV fluid to KVO. The patient is slowly improving. He prob ably has a prolonged ileus. /MODL Voice ID: [id number] Report ID: [id number]
[2018-01-05] MEDS: CEFOXITIN/SWI 1gm 1 GM/10 ML SYR IV SCH ×4 (00:45→17:51)
[2018-01-05] MEDS: METRONIDAZOLE 500mg IVPB 500 MG/100 ML BAG IV SCH ×4 (00:45→17:51)
[2018-01-05] MEDS: NA CHLORIDE 0.9% 1,000 ML IV SCH ×4 (00:46→12:18)
[2018-01-05] MEDS: MEPERIDINE HCL 25 MG/0.5 ML IV PRN ×8 (00:46→20:23)
[2018-01-05] MEDS: HYDROCODONE/APAP 7.5/325 MG TAB PO PRN ×6 (01:48→22:59)
[2018-01-05 06:23] LABS: Absolute Lymphocytes (CBC) 1.2 K/uL (0.7-4.9); Absolute Monocytes 0.8 K/uL (0.1-1.3); Absolute Neutrophil 4.7 K/uL (1.8-8.0); Basophils % 0.4 % (0-1.3); Eosinophils % 1.8 % (0-4.4); Hematocrit 32.8 % (39.6-49.0); MCH 30.7 pg (27.0-35.0); MCV 89.6 fL (80-100); MPV 7.9 fL (7.6-11.3); Monocytes % 11.9 % (3.3-12.3); RBC Red Blood Cell Count 3.66 M/uL (4.33-5.43)
[2018-01-05 06:37] LABS: BUN Blood Urea Nitrogen 9 mg/dL (6-20); Bicarbonate 21 mEq/L (21-31); Glucose Level 98 mg/dL (65-120); Potassium 3.8 mEq/L (3.6-5.0); Sodium Level 134 mEq/L (135-145)
[2018-01-05] MEDS: ENOXAPARIN 40 MG/0.4 ML SQ SCH (08:40)
[2018-01-05] MEDS: PANTOPRAZOLE 40 MG INJ IVP SCH (08:41)
[2018-01-05] MEDS ORDERED: POTASSIUM CL SA 10 MEQ TAB PO ONE (09:00)
--- NOTE | 2018-01-05 17:16 | PN ---
Date of Progress Note: 01/05/2018 Subjective: The patient is awake, alert and tolerating diet. Still has pain but it is much better n ow. Objective: Vital signs stable afebrile. White count is normal. Abdomen is benign. Assessment: Status post exploratory laparotomy for perforated gangrenous appendicitis. Recommendation: Believe the ileus is improving. Will advance diet. Continue parenteral pain manage ment, IV antibiotics. Probable discharge in a.m. /MODL Voice ID: [id number] Report ID: [id number]
[2018-01-06] MEDS: METRONIDAZOLE 500mg IVPB 500 MG/100 ML BAG IV SCH ×5 (00:05→23:56)
[2018-01-06] MEDS: CEFOXITIN/SWI 1gm 1 GM/10 ML SYR IV SCH ×5 (00:05→23:55)
[2018-01-06] MEDS: MEPERIDINE HCL 25 MG/0.5 ML IV PRN ×5 (01:48→16:39)
[2018-01-06] MEDS: HYDROCODONE/APAP 7.5/325 MG TAB PO PRN ×5 (02:57→20:11)
[2018-01-06 04:25] LABS: Potassium 3.9 mEq/L (3.6-5.0)
[2018-01-06] MEDS ORDERED: POTASSIUM CL SA 10 MEQ TAB PO ONE (05:00)
[2018-01-06] MEDS: PANTOPRAZOLE 40 MG INJ IVP SCH (08:55)
[2018-01-06] MEDS: ENOXAPARIN 40 MG/0.4 ML SQ SCH (08:55)
--- NOTE | 2018-01-06 10:38 | PN ---
Date of Progress Note: 01/06/2018 Subjective: The patient is awake, alert, tolerating diet. He, however, is complaining of quite a bi t of pain in the midline. No nausea or vomiting. No diarrhea. Moving his bowels. Objective: Vital Signs: Stable. He is Afebrile. Abdomen: Soft. Minimal incisional tenderness and right-sided tenderness. No rebound, rigidity, or guarding. Assessment: Status post open laparotomy for perforated gangrenous acute appendicitis. Recommendations: We will go ahead and check a CT of the abdomen and pelvis to make sure that there i s no intraabdominal abscess or disease that is causing increased pain and this patient is requiring N orco fairly regularly; however, his pain has gotten a little bit better and once I can make sure that there is no intraabdominal pathology, we can send him home on pain medicine and antibiotics. ALEJO/MONICA Voice ID: [id number] Report ID: [id number]
--- NOTE | 2018-01-06 12:08 | RAD REPORT ---
EXAM DESCRIPTION: CT - Abdomen Pelvis W Contrast - 01/06/2018 11:52 am CLINICAL HISTORY: Abdominal pain, recent surgery for acute perforated appendicitis COMPARISON: Preop CT study December 30 TECHNIQUE: Biphasic, helical CT imaging of the abdomen and pelvis was performed following 100 ml non -ionic IV contrast. Oral contrast was given. All CT scans are performed using dose optimization technique as appropriate and may include automated exposure control or mA/KV adjustment according to patient size. FINDINGS: Lung base atelectasis present. No pneumothorax or pleural effusion. No pericardial effusio n. The liver, spleen, and pancreas show no suspicious findings. Gallbladder and biliary tree are also wi thout suspicious finding. Gallstones can be occult. No hydronephrosis or obstructing calculus. In the medial superior right kidney there is again noted t o be a 3.5 centimeter rounded area of decreased attenuation. In the posterior inferior right kidney t here is a 13 millimeter partially exophytic hypodense mass. These were also detailed on the prior eduarda dy. Neither has a classic appearance for pyelonephritis and neither meet simple cyst criteria. Comple x cyst would be the favored diagnosis. No perinephric stranding. No urinary bladder acute finding. No gastric dilatation or gastric wall thickening. Oral CT contrast has reached the ascending colon. N o extraluminal extravasation of the CT contrast. Moderate stool volume present in the colon. Fluid an d stranding are present in the lower pelvis and right lower quadrant. Drain tube is in place in the r ight lower quadrant. Numerous small reactive mesenteric lymph nodes are present. The amount of fluid and stranding present are not unexpected given the recent surgery and the perforated appendix. Curren tly there is no well-defined abscess and no drainable fluid collection. A small collection in the lef t lower pelvis is only 15 x 9 mm. No measurable free air. No pneumatosis. No bulky lymphadenopathy. No omental thickening. Bilateral fa t filled inguinal hernia is present. No adrenal abnormality. No suspicious bony findings. IMPRESSION: Postsurgical changes are present from surgical treatment of perforated appendicitis. Daina in tube is in place in the right lower quadrant and lower right pelvis. The amount of fluid in stranding present in the lower abdomen and pelvis are felt to be within normal limits for the surgical procedure performed. A 15 x 9 millimeter focal collection is present in the lower left pelvis. No other measurable collect ion and no drainable fluid collection is present. Two abnormalities of the right kidney are detailed above and on the December 30 study. Complex cysts are f avored but continued follow-up is needed. Acute pyelonephritis is not suspected. When the patient recovers from the appendicitis surgery, contrast MRI imaging could be performed to f urther evaluate the right kidney findings. Alternatively, repeat CT imaging in 4-6 months could be pe rformed. If the patient has had any outside CT imaging, those images could be submitted as an alterna tive to the followup.
[2018-01-07] MEDS: HYDROCODONE/APAP 7.5/325 MG TAB PO PRN ×4 (00:04→12:13)
[2018-01-07] MEDS: MEPERIDINE HCL 25 MG/0.5 ML IV PRN (02:45)
[2018-01-07] MEDS: METRONIDAZOLE 500mg IVPB 500 MG/100 ML BAG IV SCH (05:10)
[2018-01-07] MEDS: CEFOXITIN/SWI 1gm 1 GM/10 ML SYR IV SCH ×2 (05:11→12:13)
[2018-01-07 05:20] LABS: Absolute Lymphocytes (CBC) 1.1 K/uL (0.7-4.9); Absolute Monocytes 0.7 K/uL (0.1-1.3); Absolute Neutrophil 7.5 K/uL (1.8-8.0); Basophils % 0.4 % (0-1.3); Eosinophils % 1.1 % (0-4.4); Hematocrit 32.3 % (39.6-49.0); Lymphocytes % 11.7 % (15.3-44.8); MCH 30.6 pg (27.0-35.0); MCV 89.5 fL (80-100); MPV 7.7 fL (7.6-11.3); Monocytes % 7.8 % (3.3-12.3); RBC Red Blood Cell Count 3.61 M/uL (4.33-5.43)
[2018-01-07 05:30] LABS: Potassium 4.2 mEq/L (3.6-5.0)
[2018-01-07 08:23] VITALS: TEMP 97.8
[2018-01-07] MEDS: PANTOPRAZOLE 40 MG INJ IVP SCH (08:38)
[2018-01-07] MEDS: ENOXAPARIN 40 MG/0.4 ML SQ SCH (08:38)
[2018-01-07] MEDS: SODIUM CHLORIDE 0.9% 10ML INJ IV PRN (08:39)
--- NOTE | 2018-01-07 10:53 | DS ---
Date of Discharge: 01/07/2018 Admitting Diagnosis: Acute perforated gangrenous appendicitis and right kidney mass x2. Postoperative Diagnosis: Acute perforated gangrenous appendicitis, right kidney mass x2. Procedures Performed: Exploratory laparotomy and appendectomy. Hospital Course: The patient is a 52-year-old gentleman, who underwent the aforementioned procedure. Postoperatively, he was in the ICU. He was transferred to the floor in 2 days and then slowly his bowel functions returned. He was given liquids. NG tube was discontinued. Hunter was discontinued. His diet was advanced. IV antibiotics were maintained. His white count has normalized. He was com plaining of incisional pain and CT of the abdomen and pelvis was done, which showed no drainable flui d. There was a small collection of 15 x 9 mm and does not need any intervention. The patient today is tolerating diet, ambulating, pain controlled with p.o. pain medication, afebrile. Therefore, the patient will be discharged to home. Disposition: Home. Condition: Stable. Discharge Instructions: Discontinue DELILAH drain. May shower. Keep wound clean and dry. Follow up in my office in a week. Call for appointment. Cipro, Flagyl, Tylenol No. 3, and Colace prescription gi marilee and discharge instructions discussed with the patient in detail. He was also told to follow up w ith the urologist and I will make arrangements for that as an outpatient once he heals from his appendix surgery. ALEJO/MONICA Voice ID: [id number] Report ID: [id number]
[2018-01-07 11:52] VITALS: BP 123/80
[2018-01-07 12:06] VITALS: O2SAT 95
== END 2018-01-07 12:51 | disposition home or self-care (01) | DRG 340 ==
LOC: ER 11:50 → ERHOLD 17:12 → 3RD-ICU 19:52 → 4TH 01-01 11:55
PROVIDERS: ADMIT Surgery; ATTEND Surgery
PROC: 0WQF0ZZ Repair Abdominal Wall, Open Approach (ICD-10-PCS; 2017-12-30)
PROC: 0DTJ0ZZ Resection of Appendix, Open Approach (ICD-10-PCS; principal; 2017-12-30 18:00)
DX: K35.2 Acute appendicitis with generalized peritonitis (principal); K42.9 Umbilical hernia without obstruction or gangrene; N28.89 Other specified disorders of kidney and ureter
CPT/HCPCS: 36415; 74177; 80048; 80076; 81003; 82962; 83690; 83735; 84100; 85025; 88302; 88304; 93005; 97163; 99285; C9113; J0694; J1650; J2175; J2250; J2405; J2543; J2710; J2765; J3010; J3475; J3490; J7030; Q9967